=== PATIENT | female | born 1970 | race Caucasian/White ===

== ENCOUNTER 2018-08-16 14:45 | Inpatient (IN) | payer OTHER ==
[~2018-08-16] VITALS: Ht 167.6 cm; Wt 68.0 kg
[~2018-08-16 14:45] MED LIST: LEVO-T25 MCG PO
[2018-08-22] MEDS ORDERED: POLY119PG PO (07:00)
[2018-08-22] MEDS ORDERED: IBUPROFEN800 MG PO (07:00)
[2018-08-22] MEDS ORDERED: GAS RELIEF125 MG PO (07:00)
[2018-08-22] MEDS ORDERED: GABAPENTIN600 MG PO (07:00)
== END 2018-08-22 09:58 | disposition home or self-care (01) | DRG 743 ==
LOC: OB/GYN 08-20 05:40 → O/R 08-20 05:40 → OB/GYN 08-20 14:45
PROVIDERS: ADMIT Obstetrics & Gynecology
PROC: 0UT90ZZ Resection of Uterus, Open Approach (ICD-10-PCS; principal; 2018-08-20 16:00)
PROC: 0UT70ZZ Resection of Bilateral Fallopian Tubes, Open Approach (ICD-10-PCS; 2018-08-20 16:00)
DX: D25.1 Intramural leiomyoma of uterus (principal); N84.0 Polyp of corpus uteri